=== PATIENT | male | born 1980 | race Caucasian/White ===

== ENCOUNTER 2025-03-07 09:24 | Emergency (ER) | payer BC ==
[2025-03-07] MEDS: Bacitracin Oint 1 GM U/D Packet TOP ONE (09:51)
== END 2025-03-07 10:00 | disposition home or self-care (01) ==
LOC: CC.ED 09:24
DX: S01.01XA Laceration without foreign body of scalp, initial encounter (principal); W26.8XXA Contact with other sharp object(s), not elsewhere classified, initial encounter; Y93.89 Activity, other specified
CPT/HCPCS: 12001; 99282; 99283